=== PATIENT | female | born 1955 | race Caucasian/White ===

== ENCOUNTER 2018-06-18 06:08 | Inpatient (IN) | payer BC ==
[2018-06-16 17:48] VITALS: BMI 34.2
[2018-06-18] MEDS ORDERED: fentaNYL CITRATE 250 MCG/5 ML VIAL ONE (07:14)
[2018-06-18] MEDS ORDERED: ROCURONIUM BROMIDE 50 MG/5 ML VIAL ONE ×2 (07:14→09:12)
[2018-06-18] MEDS ORDERED: DEXAMETHASONE SOD PHOSPHATE 4 MG/1 ML VIAL ONE (07:14)
[2018-06-18] MEDS ORDERED: PROPOFOL 20 ML ONE (07:14)
[2018-06-18] MEDS ORDERED: LIDOCAINE HCL/PF 2% SDV 5ML VIAL ONE (07:14)
[2018-06-18] MEDS ORDERED: SUCCINYLCHOLINE CHLORIDE 200 MG/10 ML VIAL ONE (07:14)
[2018-06-18] MEDS ORDERED: HEPARIN NA (PORCINE) 5,000 UNITS/ML 1ML VIAL SQ ONE ×2 (07:33→07:51)
[2018-06-18] MEDS ORDERED: CEFAZOLIN 2 GM/D5W 2 GM/50 ML ML IVPB ONE (07:33)
[2018-06-18] MEDS ORDERED: LIDOCAINE 1%/EPI 1:100000 (20 ML MULTI DOSE VIAL) ONE (07:36)
[2018-06-18] MEDS ORDERED: oxyCODONE HCL 5 MG TABLET PO PRN ×2 (07:58)
[2018-06-18] MEDS ORDERED: ONDANSETRON 4 MG/2 ML VIAL IVPUSH PRN ×2 (07:58→17:00)
[2018-06-18] MEDS ORDERED: LACTATED RINGERS SOLUTION 1,000 ML IV SCH ×2 (08:00→13:45)
--- NOTE | 2018-06-18 08:03 | HP ---
History & Physical Update - History History: No Change - Physical Physical: No Change - Assessment Assessment: No Change - Plan Plan: No Change (full H&P in chart from 06/12/2018)
[2018-06-18] MEDS ORDERED: MIDAZOLAM HCL 2 MG/2 ML SINGLE DOSE VIAL ONE (08:22)
[2018-06-18] MEDS ORDERED: ceFAZolin SODIUM 1 GM VIAL ONE (08:52)
[2018-06-18] MEDS ORDERED: ceFAZolin SODIUM 1 GM VIAL IVPB ONE (08:55)
[2018-06-18] MEDS ORDERED: BUPIVACAINE HCL/PF 0.25% (2.5MG/ML) 10 ML VIAL IJ ONE (09:15)
[2018-06-18] MEDS ORDERED: LIDOCAINE 1%/EPI 1:100000 (50 ML MULTI DOSE VIAL) NR ONE (12:40)
[2018-06-18] MEDS ORDERED: NEOSTIGMINE METHYLSULFATE 0.5 MG/ML - 10 ML MDV ONE (12:58)
[2018-06-18] MEDS ORDERED: GLYCOPYRROLATE 0.2 MG/1 ML VIAL ONE (12:58)
[2018-06-18] MEDS ORDERED: ACETAMINOPHEN 1000 MG/100 ML VIAL (NON FORMULARY) IVPB SCH (13:54)
[2018-06-18] MEDS ORDERED: KETOROLAC TROMETHAMINE 30 MG/1 ML VIAL IVPUSH SCH (14:00)
--- NOTE | 2018-06-18 14:01 | OP ---
Operative Note - Note: Operative Date: 06/18/18 Pre-Operative Diagnosis: uterine prolapse Operation: robotic assisted supracervical hysterectomy, bilateral salpingectomy , yusef of ahesions, sacrocolpopexy, posterior colporrhaphy, cystoscopy Surgeon: Thais Yi Wood Treating Inspector: Nabila Ortiz Anesthesia: General Specimens Removed: uterus, bilateral fallpian tubes Estimated Blood Loss (mls): 100 Drains, Volume Out (mls): 500 (levine) Fluid Volume Replaced (mls): 1,000 Operative Report Dictated: Yes
[2018-06-18] MEDS ORDERED: ACETAMINOPHEN INJECTION 100 ML IVPB ONE (14:33)
[2018-06-18] MEDS: KETOROLAC TROMETHAMINE 30 MG/1 ML VIAL IVPUSH SCH ×2 (15:15→18:04)
[2018-06-18] MEDS ORDERED: CEFAZOLIN 1 GM in DEXTROSE 5%-WATER - 100 ML IVPB SCH (17:00)
[2018-06-18] MEDS: CEFAZOLIN 1 GM/D5W 1 GM/50 ML BAG IVPB SCH (17:15)
[2018-06-18] MEDS: ACETAMINOPHEN 325 MG TABLET (FP) PO SCH (21:00)
[2018-06-18] MEDS ORDERED: SULFAMETHOXAZOLE/TRIMETHOPRIM 800MG/160MG D.S. TABLET PO SCH (22:00)
[2018-06-18] MEDS: HEPARIN NA (PORCINE) 5,000 UNITS/ML 1ML VIAL SQ SCH (22:05)
[2018-06-19] MEDS: CEFAZOLIN 1 GM/D5W 1 GM/50 ML BAG IVPB SCH (02:09)
[2018-06-19] MEDS: KETOROLAC TROMETHAMINE 30 MG/1 ML VIAL IVPUSH SCH (02:55)
[2018-06-19] MEDS: ACETAMINOPHEN 325 MG TABLET (FP) PO SCH ×2 (02:56→08:03)
[2018-06-19 07:27] LABS: HEMATOCRIT 29.1 % (32.4-45.2); HEMOGLOBIN 9.5 GM/dL (10.7-15.3); MCHC 32.8 g/dl (32.0-36.0); MEAN CELL VOLUME 91.3 fl (80-96); MEAN PLT VOLUME 7.2 fl (7.5-11.1); PLATELET COUNT 480 K/MM3 (134-434); RBC 3.18 M/mm3 (3.60-5.2); RDW 14.6 % (11.6-15.6); WHITE BLOOD COUNT 14.1 K/mm3 (4.0-10.0)
[2018-06-19 07:50] LABS: ANION GAP 7 MMOL/L (8-16); BLOOD UREA NITROGEN 14 mg/dL (7-18); CALCIUM 8.2 mg/dL (8.5-10.1); CHLORIDE 102 mmol/L (98-107); CO2 31 mmol/L (21-32); CREATININE 0.7 mg/dL (0.55-1.3); GLUCOSE,RANDOM 83 mg/dL (74-106); SODIUM 140 mmol/L (136-145)
[2018-06-19 08:37] VITALS: BP 117/67; PULSE 70; TEMP 98.3
--- NOTE | 2018-06-19 08:46 | PN ---
Progress Note (short form) - Note Progress Note: POD#1 No nausea or emesis, tolerated clears. No SOB/CP. Pain well managed. Vital Signs Period Temp Pulse Resp BP Sys/Goodrich Pulse Ox Last 24 Hr 97.3 F-98.5 F 64-80 10-22 106-1113/52-81 95-100 GEN: A&)x3, NAD CV: RRR Lungs: CTA b/l ABD: soft, non-distended, inc tenderness. Inc c/d/i with dermabond. Mild ecchymosis to right lateral incision LE: No calf tenderness or swelling noted b/l Perineum: Sutures intact, scant vaginal bleeding noted CBC, BMP //18 06:00 06/19/ 06:00 A/p: 62 yo female s/p robotic assisted supracervical hysterectomy, bilateral salpingectomy, yusef of ahesions, sacrocolpopexy, posterior colporrhaphy, cystoscopy Diet advanced this am James removed for TOV DVT ppx with heparin SQ/ambulation and SCDs D/w the patient her discharge pain management plan. Alternating tylenol and mortin x 24 hours and narcotics for break thru pain. She may shower, no baths and hesham-care. D/w Dr. Yi
[2018-06-19] MEDS: HEPARIN NA (PORCINE) 5,000 UNITS/ML 1ML VIAL SQ SCH (09:37)
[2018-06-19] MEDS ORDERED: LISINOPRIL 20 MG TABLET (FP) PO SCH (10:00)
--- NOTE | 2018-06-20 10:17 | OP ---
DATE OF OPERATION: 06/18/2018 PREOPERATIVE DIAGNOSIS: Uterine prolapse. OPERATION: Robotic assisted supracervical hysterectomy, bilateral salpingectomy, sacrocolpopexy, posterior coloperineorrhaphy, and cystoscopy. SURGEON: Jasvir Gómez MD AUTO CLEANER: Nabila Ortiz MD ANESTHESIA: General. SPECIMENS REMOVED: Uterus and bilateral fallopian tubes. ESTIMATED BLOOD LOSS: 100 mL. DRAINS: James catheter with 500 mL output. FLUID ADMINISTERED: Lactated Ringers 1 L. INDICATIONS: Patient is a 62-year-old woman with bothersome prolapse symptoms for 6 months that were progressively worsening and significantly bothersome. The patient denied any history of abnormal vaginal bleeding and had a normal Pap smear a month ago. She was not interestedin conservative therapy with a pessary and desired surgical intervention. On exam, the patient was noted to have stage 3 uterine and anterior pelvic organ prolapse. There was no stress urinary incontinence seen on exam with the prolapse reduced. The risks, benefits, and alternatives of the various surgical approaches were discussed with the patient, and she ultimately opted for a robotic assisted supracervical hysterectomy with sacrocolpopexy and posterior coloperineorrhaphy with a possible bilateral salpingo-oophorectomy. She now presents for surgery. PROCEDURE DETAILS: In the preoperative area, the patient was given 5000 subcutaneous heparin. After informed consent was obtained, the patient was brought to the operating room and placed supine on the operating room table. Bilateral sequential compression devices were placed on the lower extremities, 2 g Ancef IV were administered, general anesthesia was induced, and endotracheal tube was placed and secured. The patient was then positioned in the dorsal lithotomy position with a beanbag to prevent movement during the case. Her arms were padded and tucked. The abdomen and external genitalia were then prepped and draped in the usual sterile fashion. The umbilicus was grasped with Allis clamps and an incision made at the superior aspect of the umbilicus. A Veress needle was placed after 2 pops and saline easily entered into the abdominal cavity. Insufflation was initiated. However, the pressures were high, and so, we decided to place the Veress needle at [facility] Point in the left upper quadrant. The abdominal cavity was entered, and insufflation was initiated with lower intraabdominal pressures. Once the abdomen was sufficiently insufflated, a 5-mm port was placed at [facility] and the abdomen inspected. Theer was no evidence of injury to the intraabdominal contents. At this point, an 8-mm robotic port was placed at the umbilicus and 2 additional 8-mm robotic ports were placed into the left of the umbilicus and 1 additional robotic port was placed to the right of the umbilicus. A 10-12 technical assistant port was placed even more lateral to the robotic port. All of these ports were placed under direct visualization with injection of Marcaine prior to insertion of the port. At this point, the patient was placed in steep Trendelenburg position, and the Xi robot was docked. We then proceeded with the case. An EEA sizer was placed in the vagina to identify the uterus. A robotic tenaculum was used to manipulate the uterus to the left side. At this point, there was evidence of a tubal ligation was seen as there was separation of the fallopian tube. The fimbriated end of the fallopian tube was identified and using electrocautery was carefully off of the ovary and IP ligament. This distal segment of the fallopian tube with the fimbriated end was then removed out of the abdominal cavity and submitted for pathology. We then proceeded to cauterize the round ligament and incise it. After which, the broad ligament was then divided using electrocautery. The anterior and posterior flaps of the broad ligament were developed and incised sequentially all the way down to the level of the cervix. The same exact procedure was performed on the contralateral side. At this point, the anterior peritoneal flap was developed in order to dissect the bladder off of the uterus. Posteriorly, the peritoneal flap was developed, as well. At this point, the uterine vessels were coagulated using the bipolar fenestrated robotic instrument. Once the uterine vessels were coagulated, a supracervical hysterectomy was performed. The cervical os was coagulated, as well. The uterus and fallopian tubes were placed in a 10-mm EndoCatch bag. The anterior flap of peritoneum was extended further down the anterior vaginal wall, and the same was done posteriorly. Once adequate length was achieved, the Restorelle Y-mesh was placed into the abdomen and was secured to the anterior and posterior vaginal dee using interrupted 2-0 PDS stitches. Once the Y-mesh was adequately secured, we then retracted the sigmoid bowel laterally and identified the sacral promontory. The peritoneum over the promontory was incised and dissection extended down through the fat until the sacral promontory was identified. The peritoneum incision was also extended down along the level of the uterosacral ligaments in order to cover the mesh later on. The mesh was brought up to the sacral promontory and secured to the promontory using 3 interrupted stitches of 2-0 Prolene. Once the apex of the vagina was adequately suspended, the extraneous mesh was excised, and the peritoneum was closed over the mesh using a 3-0 V-Loc suture. At this point, good hemostasis was noted. The technical assistant port incision was extended to remove the uterine specimen. The remaining ports were removed under direct visualization. The right technical assistant port fascia was closed using 0 Vicryl on a UR-6 needle. The remaining robotic ports and the 5-mm laparoscopic port were closed using 4-0 Monocryl for subcuticular closure. The technical assistant port site was closed in a second layer using 3-0 Vicryl interrupted stitches followed by a subcuticular closure with 4-0 Monocryl. Dermabond was applied on all the incisions. We then proceeded with the posterior coloperineorrhaphy. A cameron-shaped incision was marked at the level of the perineal body. The skin was infiltrated with 1% lidocaine with epinephrine, and an incision made. The previously marked cameron-shaped area was deepithelialized. The vaginal skin was dissected off the vaginal muscularis on the posterior vaginal wall and extended laterally. We then placed 0 Vicryl interrupted mattress stitches to reapproximate the posterior vaginal muscularis. At least 3 mattress stitches were placed , thus reducing the rectocele. The perineal body was also reapproximated using interrupted stitches of 0 Vicryl, after which once the prolapse was completely reduced, the incision was irrigated and the vaginal skin was closed using 2-[address]-2 needle. The vagina was irrigated. Good hemostasis was noted. At this point, cystoscopy was performed, and efflux was seen from both ureters. The James was then replaced. The patient tolerated the procedure without any complication, was subsequently awakened and extubated and was transferred to the recovery room in good condition. Dr. Gómez was scrubbed and present for the entire case. JASVIR GÓMEZ MD [id number]
--- NOTE | 2018-06-22 16:54 | PATH ---
Surgical Pathology Report Patient Name: ADELITA MCGRAW [facility]. Rec. #: [id number] /Age/Gender: 1955 (Age: 62) / F Account: [id number] Location: [facility] OBS/DEGREE CLERK Taken: 06/18/2018 Received: 06/19/2018 Reported: 06/22/2018 Physicians: Thais Yi M.D. Specimen(s) Received UTERUS WITH TUBES Clinical History Uterine prolapse Final Diagnosis UTERUS, BILATERAL FALLOPIAN TUBES, ROBOTIC SUPRACERVICAL HYSTERECTOMY AND BILATERAL SALPINGECTOMY: INACTIVE ENDOMETRIUM. MYOMETRIUM WITH ADENOMYOSIS AND SMALL INTRAMURAL LEIOMYOMA. UNDESIGNATED FALLOPIAN TUBE (2) WITH ENDOSALPINGOSIS. UNDESIGNATED UNREMARKABLE FALLOPIAN TUBE (1). Electronically Signed Kerry Wagner M.D. Gross Description Received in formalin labeled "uterus, bilateral tubes," is a 50 g supracervically amputated uterus with no attached adnexa. The specimen measures 6.3 cm from superior to inferior, 5.2 cm from left to right and 3.3 cm from anterior to posterior. The serosa is loja-valencia and smooth. The endometrial cavity measures 3.7 cm in length and 1.1 cm from cornu to cornu. The endometrium is loja-red and averages 0.1 cm in thickness. The myometrium displays a 0.6 cm in greatest dimension intramural nodule. The cut surface of the nodule is loja and rubbery with whorled architecture. No areas of hemorrhage or necrosis are identified. The remaining myometrium is loja and averages 1.5 cm in thickness. The undesignated, fimbriated fallopian tubes are separately received within the same container. Arbitrarily designated "fallopian tube 1" measures 2 cm in length. The outer surface is loja and smooth. Sectioning reveals an unremarkable lumen. Arbitrarily designated "fallopian tube 2" measures 1.8 cm in length. The outer surface is valencia purple and smooth. Sectioning reveals an unremarkable lumen. Hide Inspector And Sorter sections are submitted in 9 cassettes as follows: 1-cervical stump margin of resection; 2-anterior endomyometrium with intramural nodule; 3-additional anterior endomyometrium; 1-5-nasfjyfml endomyometrium; 6-"fallopian tube 1" fimbria; 7-cross sections of "fallopian tube 1"; 8-"fallopian tube 2" fimbria; 9-cross sections of "fallopian tube 2". 06/19/2018 [facility]06/19/2018
== END 2018-06-19 11:50 | disposition home or self-care (01) | DRG 743 ==
LOC: JSAMEDAYSX 06:08 → J3W 16:01
PROVIDERS: ADMIT Urology Female Pelvic Medicine and Reconstructive Surgery; ATTEND Urology Female Pelvic Medicine and Reconstructive Surgery
PROC: 0USG4ZZ Reposition Vagina, Percutaneous Endoscopic Approach (ICD-10-PCS; 2018-06-18)
PROC: 0JQC0ZZ Repair Pelvic Region Subcutaneous Tissue and Fascia, Open Approach (ICD-10-PCS; 2018-06-18)
PROC: 8E0W4CZ Robotic Assisted Procedure of Trunk Region, Percutaneous Endoscopic Approach (ICD-10-PCS; 2018-06-18)
PROC: 0UJH8ZZ Inspection of Vagina and Cul-de-sac, Via Natural or Artificial Opening Endoscopic (ICD-10-PCS; 2018-06-18)
PROC: 0UT94ZL Resection of Uterus, Supracervical, Percutaneous Endoscopic Approach (ICD-10-PCS; principal; 2018-06-18 08:00)
PROC: 0UT74ZZ Resection of Bilateral Fallopian Tubes, Percutaneous Endoscopic Approach (ICD-10-PCS; 2018-06-18 08:00)
DX: N81.4 Uterovaginal prolapse, unspecified (principal)
CPT/HCPCS: 36415; 80048; 85027; 86850; 86900; 86901; 88307-TC; 94760; J0131; J1644